=== PATIENT | female | born 1995 | race Caucasian/White ===

== ENCOUNTER 2016-03-05 19:50 | Emergency (ER) | payer OTHER ==
[2016-03-05 19:56] VITALS: BP 121/69; PULSE 97; TEMP 98.3; BMI 32.4
[2016-03-05] MEDS ORDERED: SODIUM CHLORIDE 1,000 ML IV STA (19:57)
--- NOTE | 2016-03-05 20:13 | PDOC ---
*Physical Exam - Vital Signs Last Vital Signs Temp Pulse Resp BP Pulse Ox 98.3 F 97 H 18 121/69 100 03/05/16 19:54 03/05/16 19:54 03/05/16 19:54 03/05/16 19:54 03/05/16 19:54 ED Treatment Course - LABORATORY CBC & Chemistry Diagram: 03/05/16 20:18 03/05/16 21:05 Medical Decision Making - Medical Decision Making 03/05/16 20:13 agree with care from MAITE Young *DC/Admit/Observation/Transfer Diagnosis at time of Disposition: Hyperemesis arising during - Discharge Dispostion Disposition: HOME Condition at time of disposition: Improved - Prescriptions Prescriptions: Metoclopramide HCl [Reglan] 10 mg PO QID #30 tablet - Referrals Referrals: Errol Gomez MD [Staff Physician] - Rosanna Traylor [Primary Care Provider] - - Patient Instructions Additional Instructions: Rest Pelvic rest Increase fluids We have spoke in length regarding your ultrasound report from this evening in the emergency department. We have spoke about the heart rate of 198 bpm which is extremely high. You've advised me that you will see your supply room clerk tomorrow for follow-up. I want to reiterate how important it is for you to do so tomorrow. Be sure to continue drinking fluids and eating 3 full meals with snacks in between. Pelvic rest. Return back to the emergency department for severe/persistent or worsening symptoms.
[2016-03-05] MEDS ORDERED: METOCLOPRAMIDE HCL INJECTION 10 MG/2 ML VIAL ONE (20:25)
[2016-03-05] MEDS ORDERED: METOCLOPRAMIDE HCL INJECTION 10 MG/2 ML VIAL IVPB ONE (20:26)
[2016-03-05 20:29] LABS: MCH 28.9 pg (25.7-33.7); MCHC 32.4 g/dl (32.0-36.0); MEAN CELL VOLUME 89.3 fl (80-96); MEAN PLT VOLUME 9.3 fl (7.5-11.1); PLATELET COUNT 303 K/MM3 (134-434); RDW 14.3 % (11.6-15.6); WHITE BLOOD COUNT 12.3 K/mm3 (4.0-10.0)
--- NOTE | 2016-03-05 20:52 | PDOC ---
History of Present Illness - General Chief Complaint: Vomiting/Diarrhea Stated Complaint: 10WKS/VOMITING/DIARRHEA Time Seen by Provider: 03/05/16 20:12 History Source: Patient Exam Limitations: No Limitations - History of Present Illness Travel History: No Timing/Duration: reports: intermittent Quality: reports: mild Pain Radiation: reports: no radiation Past History - Travel Traveled outside of the country in the last 30 days: No Close contact w/someone who was outside of country & ill: No - Past Medical History Allergies/Adverse Reactions: Allergies Allergy/AdvReac Type Severity Reaction Status Date / Time peanut Allergy Severe shock Verified 03/05/16 19:54 Home Medications: Ambulatory Orders Pnv95/Ferrous Fumarate/FA [ Caplet] 1 each PO DAILY 03/05/16 Asthma: Yes Cancer: No Cardiac Disorders: No Diabetes: No HTN: No Seizures: No Thyroid Disease: No - Immunization History Immunization Up to Date: Yes - Psycho/Social/Smoking Cessation Hx Anxiety: No Suicidal Ideation: No Smoking Status: No Smoking History: Never smoked Number of Cigarettes Smoked Daily: 0 Hx Alcohol Use: No Drug/Substance Use Hx: No Substance Use Type: None Hx Substance Use Treatment: No Abd/GI Specific PMHX - Complaint Specific PMHX Diverticulitis: No Gall Bladder Disease: No GERD: No Review of Systems - Review of Systems Able to Perform ROS?: Yes Comments:: 03/05/16 20:52 CONSTITUTIONAL: Absent: fever, chills, diaphoresis, generalized weakness, malaise, loss of appetite HEENT: Absent: rhinorrhea, nasal congestion, throat pain, throat swelling, difficulty swallowing, mouth swelling, ear pain, eye pain, visual Changes CARDIOVASCULAR: Absent: chest pain, loss of consciousness, palpitations, irregular heart rate, peripheral edema RESPIRATORY: Absent: cough, shortness of breath, dyspnea with exertion, orthopnea, wheezing, stridor, hemoptysis GASTROINTESTINAL: +n/v/d Absent: abdominal pain, abdominal distension, constipation, melena, hematochezia GENITOURINARY: Absent: dysuria, frequency, urgency, hesitancy, hematuria, flank pain, genital pain MUSCULOSKELETAL: Absent: myalgia, arthralgia, joint swelling SKIN: Absent: rash, itching, pallor HEMATOLOGIC/IMMUNOLOGIC: Absent: easy bleeding, easy bruising, lymphadenopathy, frequent infections ENDOCRINE: Absent: unexplained weight gain, unexplained weight loss, heat intolerance, cold intolerance NEUROLOGIC: Absent: headache, focal weakness or paresthesias, dizziness, unsteady gait, seizure, mental status changes, bladder or bowel incontinence PSYCHIATRIC: Absent: anxiety, depression, suicidal or homicidal ideation, hallucinations. 03/05/16 20:53 Is the patient limited Surinamese proficient: No *Physical Exam - Vital Signs Last Vital Signs Temp Pulse Resp BP Pulse Ox 98.3 F 97 H 18 121/69 100 03/05/16 19:54 03/05/16 19:54 03/05/16 19:54 03/05/16 19:54 03/05/16 19:54 - Physical Exam Comments: 03/05/16 20:54 GENERAL: Well developed, well nourished. Awake and alert. No acute distress. HEENT: Normocephalic, atraumatic. PERRLA, EOMI. No conjunctival pallor. Sclera are non- icteric. Moist mucous membranes. Oropharynx is clear. NECK: Supple. Full ROM. No JVD. Carotid pulses 2+ and symmetric, without bruits. No thyromegaly. No lymphadenopathy. CARDIOVASCULAR: Regular rate and rhythm. No murmurs, rubs, or gallops. Distal pulses are 2+ and symmetric. PULMONARY: No evidence of respiratory distress. Lungs clear to auscultation bilaterally. No wheezing, rales or rhonchi. ABDOMINAL: Soft. Non-tender. Non-distended. No rebound or guarding. No organomegaly. Normoactive bowel sounds. MUSCULOSKELETAL Normal range of motion at all joints. No bony deformities or tenderness. No CVA tenderness. EXTREMITIES: No cyanosis. No clubbing. No edema. No calf tenderness. SKIN: Warm and dry. Normal capillary refill. No rashes. No jaundice. NEUROLOGICAL: Alert, awake, appropriate. Cranial nerves 2-12 intact. No deficits to light touch and temperature in face, upper extremities and lower extremities. No motor deficits in the in face, upper extremities and lower extremities. Normoreflexic in the upper and lower extremities. Normal speech. Toes are down- going bilaterally. Gait is normal without ataxia. PSYCHIATRIC: Cooperative. Good eye contact. Appropriate mood and affect. ED Treatment Course - LABORATORY CBC & Chemistry Diagram: 03/05/16 20:18 03/05/16 21:05 - ADDITIONAL ORDERS Additional order review: Laboratory Results 03/05/16 20:18 Sodium Cancelled Potassium Cancelled Chloride Cancelled Carbon Dioxide Cancelled Anion Gap Cancelled BUN Cancelled Creatinine Cancelled Creat Clearance w eGFR Cancelled Random Glucose Cancelled Calcium Cancelled Total Bilirubin Cancelled AST Cancelled ALT Cancelled Alkaline Phosphatase Cancelled Total Protein Cancelled Albumin Cancelled Beta HCG, Quant Cancelled 03/05/16 20:18 RBC 4.75 MCV 89.3 MCHC 32.4 RDW 14.3 MPV 9.3 Neutrophils % Y Lymphocytes % Y - Medications Given in the ED: ED Medications Discontinued Medications Generic Name Dose Route Start Last Admin Trade Name Adama PRN Reason Stop Dose Admin Metoclopramide HCl 10 mg 03/05/16 20:26 03/05/16 20:28 Reglan Injection - IVPB 03/05/16 20:27 10 mg ONCE ONE Administration Progress Note - Progress Note Progress Note: 21-year-old female presents to the emergency department complaining of nausea/ vomiting(nonbilious, nonbloody)/diarrhea 2 days without abdominal pains, urinary symptoms: Frequency/urgency/hesitancy/hematuria, flank pain, chest pain , shortness of breath, headache. Patient states she's been trying to eat and drink all day but becomes immediately nauseous. LMP 12/26/2015 2325hrs; Pt tolerating fluids well. She says she feels better. *DC/Admit/Observation/Transfer Diagnosis at time of Disposition: Hyperemesis arising during - Discharge Dispostion Disposition: HOME Condition at time of disposition: Improved - Referrals Referrals: Rosanna Traylor [Primary Care Provider] - Errol Gomez MD [Staff Physician] - - Patient Instructions Additional Instructions: Rest Pelvic rest Increase fluids We have spoke in length regarding your ultrasound report from this evening in the emergency department. We have spoke about the heart rate of 198 bpm which is extremely high. You've advised me that you will see your development professional tomorrow for follow-up. I want to reiterate how important it is for you to do so tomorrow. Be sure to continue drinking fluids and eating 3 full meals with snacks in between. Pelvic rest. Return back to the emergency department for severe/persistent or worsening symptoms.
[2016-03-05 21:43] LABS: ALBUMIN 3.6 g/dl (3.4-5.0); ALK PHOS 35 U/L (45-117); ANION GAP 12 (8-16); BILIRUBIN,TOTAL 0.4 mg/dL (0.2-1.0); CALCIUM 8.3 mg/dL (8.5-10.1); CO2 20 mmol/L (21-32); CREATININE 0.6 mg/dL (0.55-1.02); GLUCOSE,RANDOM 72 mg/dL (74-106); SGOT/AST 14 U/L (15-37); SGPT/ALT 20 U/L (12-78)
[2016-03-05 21:53] LABS: PLATELET ESTIMATE ADEQUATE (NORMAL)
[2016-03-05 22:44] LABS: PH,URINE 5.5 (5.0-8.0); URINE APPEARANCE CLEAR; URINE BILIRUBIN NEGATIVE (NEGATIVE); URINE BLOOD NEGATIVE (NEGATIVE); URINE COLOR LT. YELLOW; URINE GLUCOSE (UA) NEGATIVE (NEGATIVE); URINE KETONE 3+ (NEGATIVE); URINE LEUK ESTERASE NEGATIVE (NEGATIVE); URINE NITRITE NEGATIVE (NEGATIVE); URINE PROTEIN NEGATIVE (NEGATIVE); URINE UROBILINOGEN 0.2 E.U/dl E.U./dl (0.2-1.0)
== END 2016-03-05 23:37 | disposition home or self-care (01) ==
LOC: JER 19:50
PROC: 3E0337Z Introduction of Electrolytic and Water Balance Substance into Peripheral Vein, Percutaneous Approach (ICD-10-PCS; principal; 2016-03-05)
PROC: 3E033GC Introduction of Other Therapeutic Substance into Peripheral Vein, Percutaneous Approach (ICD-10-PCS; 2016-03-05)
DX: O21.0 Mild hyperemesis gravidarum (principal); Z3A.10 10 weeks gestation of pregnancy
CPT/HCPCS: 36415; 76801-TC; 80053; 81003; 84702; 85025; 96361; 96374; 99281-25

== ENCOUNTER 2016-09-22 23:15 | Inpatient (IN) | payer OTHER ==
[~2016-09-22 23:15] MED LIST: AMPICILLIN 2 GM/100 ML BAG (PRE-DOCKED) IVPB ONE; DEXTROSE 5%-LACTATED RINGERS 1,000 ML IV SCH
[2016-09-23 00:19] LABS: BASOPHIL 0.2 % (0-2.0); EOSINOPHIL 0.1 % (0-4.5); MCH 29.8 pg (25.7-33.7); MCHC 33.4 g/dl (32.0-36.0); MEAN PLT VOLUME 9.4 fl (7.5-11.1); NEUTROPHILS 84.4 % (42.8-82.8); PLATELET COUNT 264 K/MM3 (134-434); RDW 12.9 % (11.6-15.6); WHITE BLOOD COUNT 13.4 K/mm3 (4.0-10.0)
[2016-09-23 00:36] LABS: ACTIVATED PTT 25.3 SECONDS (26.9-34.4)
[2016-09-23 00:40] LABS: INR 0.99 (0.82-1.09); PROTHROMBIN TIME (PATIENT) 10.9 SEC (9.98-11.88)
[2016-09-23 00:45] LABS: ALK PHOS 129 U/L (45-117); ANION GAP 12 (8-16); BILIRUBIN,TOTAL 0.3 mg/dL (0.2-1.0); CALCIUM 8.7 mg/dL (8.5-10.1); CO2 23 mmol/L (21-32); CREATININE 0.5 mg/dL (0.55-1.02); GLUCOSE,RANDOM 86 mg/dL (74-106); SGOT/AST 21 U/L (15-37); SGPT/ALT 34 U/L (12-78); TOT PROT 6.9 g/dl (6.4-8.2)
[2016-09-23] MEDS: D5W-LR W/ 20 UNITS OXYTOCIN 1,000 ML IV SCH (00:50)
[2016-09-23] MEDS ORDERED: BENZOCAINE 20% 57 GM BOTTLE TP PRN (01:03)
[2016-09-23] MEDS ORDERED: BISACODYL 10 MG SUPP.RECT RC PRN (01:03)
[2016-09-23] MEDS ORDERED: METHYLERGONOVINE MALEATE 0.2 MG/1 ML AMP IM PRN (01:03)
[2016-09-23] MEDS ORDERED: WITCH HAZEL 50% (TUCKS) 40 PAD/JAR PAD TP PRN (01:03)
[2016-09-23] MEDS ORDERED: BENZOCAINE 28 GM HEMORRHOIDAL OINTMENT TP PRN (01:03)
--- NOTE | 2016-09-23 01:12 | HP ---
Past Medical History - Primary Care Physician PCP:: Antony Fallon - Admission Chief Complaint: 21yo P1 with at EGA [id number] admitted in second stage of labor. History of Present Illness: Pt reports no complications during care. care at [facility]. No [facility] records are available. 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: No: Alzheimer's, CVA, Dementia, Migraine, Multiple Sclerosis, Peripheral Neuropathy, Parkinson's, Seizure, Syncope, TIA, Vertigo, Other Cardiovascular: No: AFIB, Aneurysm, Aortic Insufficiency, Aortic Stenosis, CAD, CHF, Deep Vein Thrombosis, HTN, Hyperlipdemia, DE, Mitral Insufficiency, Mitral Stenosis, Murmur, Pulmonary Hypertension, Other Pulmonary: Yes: Asthma Gastrointestinal: No: Ascites, Cancer, Constipation, Crohn's Disease, Diverticulitis, Diverticulosis, Esophageal Varices, Gastritis, GERD, GI Bleed, Hemorrhoids, Hiatal Hernia, Inflamatory Bowel Disease, Irritable Bowel Disease, Pancreatitis, Peptic Ulcer Disease, Ulcerative Colitis, Other Hepatobiliary: No: Cirrhosis, Cholelithiasis, Cholecystitis, Choledocholithiasis , Hepatitis A, Hepatitis B, Hepatitis C, Other Renal/: No: Renal Failure, Renal Inusuff, BPH, Cancer, Hematuria, Hemodialysis , Neurogenic Bladder, Renal Calculi, UTI, Other Reproductive: No: Ectopic , Endometriosis, Fibroids, PID, Polycystic Ovary Syndrome, Postmenopausal, Other ...: 2 ...Para: 1 ( at term) ...Term: 1 ... Weeks Gestation by Dates: 39 ...EDC by Dates: 10/01/16 Heme/Onc: No: Anemia, B12 Deficiency, Bleeding Disorder, Cancer, Current Chemotherapy, Current Radiation Therapy, Hemochromatosis, Hypercoaguable State, Myeloproliferative Synd, Sickle Cell Disease, Sickle Cell Trait, Thrombocytopenia, Other Infectious Disease: No: AIDS, C-Diff, Herpes Zoster, HIV, MRSA, STD's, Tuberculosis, VREF, Other Psych: No: Addictions, Anxiety, Bipolar, Depression, Panic, Psychosis, Schizophrenia, Other Musculoskeletal: No: Bursitis, Chronic low back pain, Hemiparesis, Hemiplegia, Osteoarthritis, Paraplegia, Other Rheumatology: No: Fibromyalgia, Gout, Lupus, Rheumatoid Arthritis, Sarcoidosis, Vasculitis, Other ENT: No: Allergic Rhinitis, Sinusitis, Other Endocrine: No: Singh's Disease, Patricia's Disease, Diabetes Insipidus, Diabetes Mellitus, Hyperparathyroidism, Hyperthyroidism, Hypothyroidism, Osteopenia, SIADH, Other Dermatology: No: Basal Cell, Cellulitis, Eczema, Melanoma, Psoriasis, Squamous Cell, Other - Past Surgical History Past Surgical History: Yes: None Hx Myomectomy: No Hx Transabdominal Cerclage: No - Smoking History Smoking history: Never smoked Have you smoked in the past 12 months: No Aproximately how many cigarettes per day: 0 - Alcohol/Substance Use Hx Alcohol Use: No History of Substance Use: reports: None - Social History Usual Living Arrangement: Yes: With Spouse, With Child ADL: Independent History of Recent Travel: No Home Medications - Allergies Allergies/Adverse Reactions: Allergies Allergy/AdvReac Type Severity Reaction Status Date / Time peanut Allergy Severe shock Verified 03/05/16 19:54 - Home Medications Home Medications: Ambulatory Orders Metoclopramide HCl [Reglan] 10 mg PO QID #30 tablet 03/05/16 Pnv95/Iron Fum/Folic Acid [ Caplet] 1 each PO DAILY 03/05/16 Family Disease History - Family Disease History Family History: Denies Review of Systems - Review of Systems Constitutional: reports: Other Eyes: reports: No Symptoms HENT: reports: No Symptoms Neck: reports: No Symptoms Cardiovascular: reports: No Symptoms Respiratory: reports: No Symptoms Gastrointestinal: reports: No Symptoms Genitourinary: reports: No Symptoms Breasts: reports: No Symptoms Reported Musculoskeletal: reports: No Symptoms Integumentary: reports: No Symptoms Neurological: reports: No Symptoms Endocrine: reports: No Symptoms Hematology/Lymphatic: reports: No Symptoms Psychiatric: reports: No Symptoms Pain Intensity: 10 Physical Exam - Maternity Constitutional: Yes: Well Nourished, Calm, Other (in labor) Eyes: Yes: WNL, Conjunctiva Clear HENT: Yes: WNL, Atraumatic, Normocephalic Neck: Yes: WNL, Supple Cardiovascular: Yes: WNL, Regular Rate and Rhythm Lungs: Clear to auscultation, Normal air movement - Abdominal Exam/OB Fundal Height: 38 Number of Fetuses: Single Presentation: Vertex Contractions: Yes Regularity: Regular Intensity: Strong Monitor Mode: External Heart Rate (range): 135 Heart Rate Location: Midline Category: I Accelerations: None Decelerations: Variable - Vaginal Exam/OB Vaginal Bleediing: No Speculum Exam: No Dilatation (cm): 10 Effacement (%): 100 Amniotic Membrane Status: Leaking (SROM on presentation) Amniotic Fluid: Yes: Clear Presentation: Vertex/Position Station: +2 - Labs Lab Results: CBC, BMP 09/23/16 00:01 09/23/16 00:01 Hemorrhage Risk Assessment - Risk Factors Medium Risk Factors: Yes: None High Risk Factors: Yes: None Risk Score: 1 Risk Level: Medium Risk Assessment/Plan 21yo P1 came to L&D in second stage of labor. I was called to assess the patient and assist in delivery. The pt proceeded to have a normal vaginal delivery quickly and w/o complications. The mother and baby are well.
[2016-09-23] MEDS: ACETAMINOPHEN 325 MG TABLET (FP) PO PRN ×4 (01:15→19:43)
[2016-09-23] MEDS: IBUPROFEN 600 MG TABLET (FP) PO PRN ×3 (01:15→19:43)
[2016-09-23 01:25] LABS: ARTERIAL BLOOD GAS BASE EXCESS -1.9 meq/l (-2-2); ARTERIAL BLOOD GAS HCO3 20.2 meq/L (22-26); ARTERIAL BLOOD GAS pH 7.46 (7.35-7.45)
[2016-09-23 01:27] LABS: ARTERIAL BLD GAS O2 SATURATION 74.4 % (90-98.9); ARTERIAL BLOOD GAS PO2 33.1 mmHg (80-100)
[2016-09-23 01:30] LABS: ARTERIAL BLOOD GAS BASE EXCESS -3.6 meq/l (-2-2); ARTERIAL BLOOD GAS HCO3 22.1 meq/L (22-26); ARTERIAL BLOOD GAS pH 7.32 (7.35-7.45)
[2016-09-23 01:31] LABS: ARTERIAL BLD GAS O2 SATURATION 54.5 % (90-98.9); ARTERIAL BLOOD GAS PO2 26.1 mmHg (80-100)
[2016-09-23 02:22] VITALS: BMI 35.3
[2016-09-23 02:25] LABS: HIV 1 & 2 AB NEGATIVE; HIV 1 AGp24 NEGATIVE
[2016-09-23] MEDS ORDERED: AMPICILLIN (PRE-DOCKED) 1 GM/100 ML BAG IVPB SCH (03:15)
[2016-09-23] MEDS: PRENATAL VITAMINS W/ FOLIC ACID TABLET (FP) PO SCH (09:41)
--- NOTE | 2016-09-23 11:24 | PN ---
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
[2016-09-24 09:26] LABS: BASOPHIL 0.7 % (0-2.0); EOSINOPHIL 3.6 % (0-4.5); MCH 30.6 pg (25.7-33.7); MCHC 33.9 g/dl (32.0-36.0); MEAN CELL VOLUME 90.3 fl (80-96); MEAN PLT VOLUME 9.4 fl (7.5-11.1); NEUTROPHILS 61.5 % (42.8-82.8); PLATELET COUNT 246 K/MM3 (134-434); RDW 13.2 % (11.6-15.6); WHITE BLOOD COUNT 8.8 K/mm3 (4.0-10.0)
[2016-09-24] MEDS: PRENATAL VITAMINS W/ FOLIC ACID TABLET (FP) PO SCH (09:32)
[2016-09-24] MEDS: ACETAMINOPHEN 325 MG TABLET (FP) PO PRN (10:09)
[2016-09-24] MEDS: IBUPROFEN 600 MG TABLET (FP) PO PRN (10:10)
--- NOTE | 2016-09-24 11:44 | PN ---
Post Progress Note - Subjective Subjective: No complaints Post Day: 1 Type of Delivery: Vital Signs: Vital Signs Temperature 98.3 F 09/24/16 08:18 Pulse Rate 86 09/24/16 08:18 Respiratory Rate 20 09/24/16 08:18 Blood Pressure 119/74 09/24/16 08:18 O2 Sat by Pulse Oximetry (%) 100 09/23/16 03:00 Breast Exam: Yes: Soft Uterus: Yes: Fundus Firm, Fundus below umbilicus, Non-tender Abdomen/GI: Yes: Abdomen soft, Passing flatus, Tolerating PO Lochia: Yes: Rubra Lochia, amount: Small Extremities: Yes: Calves non-tender Perineum: Yes: Intact Activity: Ambulating - Labs Labs: CBC WBC 8.8 K/mm3 (4.0-10.0) D 09/24/16 08:30 RBC 4.05 M/mm3 (3.60-5.2) 09/24/16 08:30 Hgb 12.4 GM/dL (10.7-15.3) 09/24/16 08:30 Hct 36.6 % (32.4-45.2) 09/24/16 08:30 MCV 90.3 fl (80-96) 09/24/16 08:30 MCH 30.6 pg (25.7-33.7) 09/24/16 08:30 MCHC 33.9 g/dl (32.0-36.0) 09/24/16 08:30 RDW 13.2 % (11.6-15.6) 09/24/16 08:30 Plt Count 246 K/MM3 (134-434) 09/24/16 08:30 MPV 9.4 fl (7.5-11.1) 09/24/16 08:30 Neutrophils % 61.5 % (42.8-82.8) D 09/24/16 08:30 Lymphocytes % 25.3 % (8-40) D 09/24/16 08:30 Monocytes % 8.9 % (3.8-10.2) 09/24/16 08:30 Eosinophils % 3.6 % (0-4.5) D 09/24/16 08:30 Basophils % 0.7 % (0-2.0) D 09/24/16 08:30 Assessment/Plan 21yo P2 s/p , doing well stable, afebrile. care instructions reviewed. Continue routine care. Ambulation encouraged Discharge instruction reviewed.
[2016-09-24] MEDS: D5W-LR W/ 20 UNITS OXYTOCIN 1,000 ML IV SCH (13:00)
[2016-09-24] MEDS ORDERED: SENNOSIDES/DOCUSATE COMBO (SENNA PLUS) TABLET (UD) PO PRN (22:00)
[2016-09-25] MEDS: IBUPROFEN 600 MG TABLET (FP) PO PRN (08:02)
[2016-09-25] MEDS: ACETAMINOPHEN 325 MG TABLET (FP) PO PRN (08:03)
[2016-09-25] MEDS: PRENATAL VITAMINS W/ FOLIC ACID TABLET (FP) PO SCH (09:13)
[2016-09-25 11:15] VITALS: BP 119/76; PULSE 72; TEMP 98.1
--- NOTE | 2016-09-25 11:50 | DS ---
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 Vital Signs: Vital Signs Temperature 98.1 F 09/25/16 10:00 Pulse Rate 72 09/25/16 10:00 Respiratory Rate 20 09/25/16 10:00 Blood Pressure 119/76 09/25/16 10:00 O2 Sat by Pulse Oximetry (%) 100 09/23/16 03:00 Constitutional: Yes: Well Nourished Eyes: Yes: WNL HENT: Yes: WNL Neck: Yes: WNL Cardiovascular: Yes: WNL Respiratory: Yes: WNL Gastrointestinal: Yes: WNL, Normal Bowel Sounds, Soft Pelvis: Yes: WNL External Genitalia: Yes: Normal Vaginal Exam: Yes: Normal ....Post : Yes: Uterus firm, Uterus non-tender Breast(s): Yes: WNL Musculoskeletal: Yes: WNL Extremities: Yes: WNL Edema: No Integumentary: Yes: WNL Neurological: Yes: WNL ...Motor Strength: WNL Psychiatric: Yes: WNL Labs: CBC, BMP 09/24/16 08:30 09/23/16 00:01 Delivery - Delivery Vaginal Delivery: No Problems, Spontaneous Type of Anesthesia: None Episiotomy/Laceration: None EBL (cc): 200 Delivery, Single - Stages of Labor Date 1st Stage Initiatied: 09/22/16 Time 1st Stage Initiated: 16:00 Date 2nd Stage Initiated: 09/23/16 Time 2nd Stage Initiated: 00:30 Date of Delivery: 09/23/16 Time of Delivery: 00:44 Time Placenta Delivered: 00:50 Placenta: Yes: Spontaneous, Normal Configuration - 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 You may walk unlimited ravindra of and climb stairs. You may resume driving the car when you feel safe and comfortable behind the wheel. No sexual activity as instructed. Wound care If you have a bandage, leave it on, and keep dry for 48-72 hours. After that time discard the outer bandage. If they are tapes on the skin under the out of bandage leave them in place. They will peel off in the next 7 to 10 days. Do Not Peel them off. You may shower the day after surgery. If there are tapes present on the skin, you may shower over them. Diet There are no dietary restrictions. Eat healthy, high-fiber foods. Drink 6 to 8 glasses of liquid each day. This will assist in keeping your bowels are regular. Pain management You may take Tylenol or acetaminophen or Ibuprofen (for example, Motrin, Advil etc.) from my pain prescription medication is ordered should be taken as prescribed for moderate to severe pain. Call MD for any of the following: Severe pain not relieved by medication Fever of 101 or higher Excessive bleeding or drainage on dressing Inability to urinate Referrals: Antony Fallno MD [Staff Physician] - Disposition: HOME - Home Medications Comprehensive Discharge Medication List: Ambulatory Orders Vitamins (Sjr) - 1 tab PO DAILY 09/23/16
--- NOTE | 2016-09-26 14:43 | PATH ---
Surgical Pathology Report Patient Name: SILVESTRE MARTIN Med. Rec. 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 Specimen(s) Received PLACENTA Clinical History , 38.6 weeks Final Diagnosis PLACENTA, DELIVERY: INTACT, SMALL (<400 GM), THIRD TRIMESTER PLACENTA WITH MODERATE PREVILLOUS, PERIVILLOUS, AND PRECHORIONIC FIBRIN DEPOSITION, THREE VESSEL UMBILICAL CORD, AND PLACENTAL MEMBRANES WITH FOCAL AMNION HYPERPLASIA AND ACUTE CHORIOAMNIONITIS. Electronically Signed Ger Rich M.D. Gross Description The specimen is received fresh, labeled "placenta" and is a 248 gram, 12.5 x 11.5 x 2.6 cm placenta with attached membranes and umbilical cord. The attached membranes are fr[place], translucent with focal opacities and insert marginally. The umbilical cord measures 17 cm in length and averages 1.0 cm in diameter. The cord inserts eccentrically, 2 cm to the nearest margin. No true knots or strictures are identified. Cut surface of the umbilical cord reveals 3 vessels. The surface is curran-blue with fibrin deposition and appropriate caliber vessels. The maternal surface is red-brown and intact. Sectioning reveals red-brown, spongy parenchyma. No focal lesions are identified. Automatic Vulcanizing Lead Operator sections are submitted in three cassettes as follows: 1- membrane rolls and umbilical cord; 2-3- full thickness sections of placenta. 09/25/2016 [facility]09/25/2016
== END 2016-09-25 12:21 | disposition home or self-care (01) | DRG 560 ==
LOC: JLDR 23:15 → J3W 09-23 03:45
PROVIDERS: ADMIT Obstetrics & Gynecology; ATTEND Obstetrics & Gynecology
PROC: 10E0XZZ Delivery of Products of Conception, External Approach (ICD-10-PCS; principal; 2016-09-23)
DX: O99.824 Streptococcus B carrier state complicating childbirth (principal); Z3A.39 39 weeks gestation of pregnancy; Z37.0 Single live birth
CPT/HCPCS: 36415; 36600; 59409; 80053; 82803; 85025; 85610; 85730; 86593; 86762; 86850; 86900; 86901; 87340; 87389; 88307-TC

== ENCOUNTER 2020-11-06 22:34 | Emergency (ER) | payer OTHER ==
[2020-11-06 23:00] VITALS: TEMP 98.4; BMI 25.1
[2020-11-06] MEDS ORDERED: ACETAMINOPHEN 1000 MG/100 ML VIAL (NON FORMULARY) IVPB ONE (23:54)
[2020-11-06] MEDS ORDERED: SODIUM CHLORIDE 0.9% 500 ML INFUS.BAG IV ONE (23:54)
[2020-11-06] MEDS ORDERED: FAMOTIDINE 20 MG/50 ML IVPB 20 MG/50 ML MG IVPB ONE (23:56)
[2020-11-06] MEDS ORDERED: MAG HYDROX/AL HYDROX/SIMETH 30 ML UNIT-DOSE CUP PO ONE (23:56)
[2020-11-07] MEDS ORDERED: FAMOTIDINE 20 MG/50 ML IVPB 20 MG/50 ML MG IVPB ONE (00:37)
[2020-11-07] MEDS ORDERED: MAG HYDROX/AL HYDROX/SIMETH 30 ML UNIT-DOSE CUP ONE (00:37)
[2020-11-07 00:49] LABS: BASO % 0.6 % (0-2.0); EOS % 0.2 % (0-4.5); HEMATOCRIT 40.8 % (32.4-45.2); HEMOGLOBIN 14.2 GM/dL (10.7-15.3); MCH 32.2 pg (25.7-33.7); MCHC 34.8 g/dl (32.0-36.0); MEAN CELL VOLUME 92.4 fl (80-96); MEAN PLT VOLUME 9.4 fl (7.5-11.1); MONO % 5.8 % (3.8-10.2); NEUT % 83.4 % (42.8-82.8); PLATELET COUNT 192 10^3/uL (134-434); RBC 4.42 M/mm3 (3.60-5.2); RDW 12.9 % (11.6-15.6); WHITE BLOOD COUNT 9.2 K/mm3 (4.0-10.0)
[2020-11-07] MEDS ORDERED: ACETAMINOPHEN INJECTION 100 ML IVPB ONE (00:49)
[2020-11-07 01:21] LABS: ALBUMIN 4.5 g/dl (3.4-5.0); ALK PHOS 34 U/L (45-117); ANION GAP 9 MMOL/L (8-16); BILIRUBIN,TOTAL 0.4 mg/dL (0.2-1); CHLORIDE 107 mmol/L (98-107); CO2 24 mmol/L (21-32); CREATININE 0.8 mg/dL (0.55-1.3); GLUCOSE,RANDOM 113 mg/dL (74-106); PHOSPHOROUS 3.4 mg/dL (2.5-4.9); SGOT/AST 15 U/L (15-37); SGPT/ALT 41 U/L (13-61); SODIUM 139 mmol/L (136-145); TOT PROT 8.6 g/dl (6.4-8.2)
[2020-11-07] MEDS ORDERED: METOPROLOL TARTRATE 25 MG TABLET (FP) PO ONE (01:41)
[2020-11-07] MEDS ORDERED: LORazepam 2 MG TABLET PO ONE (01:42)
[2020-11-07] MEDS ORDERED: METOPROLOL TARTRATE 25 MG TABLET (FP) ONE (01:53)
[2020-11-07] MEDS ORDERED: LORazepam 1 MG TABLET ONE (01:54)
[2020-11-07 03:31] VITALS: BP 98/62; PULSE 84
== END 2020-11-07 03:31 | disposition home or self-care (01) ==
LOC: JER 22:34
PROC: 3E033GC Introduction of Other Therapeutic Substance into Peripheral Vein, Percutaneous Approach (ICD-10-PCS; principal; 2020-11-06)
DX: R00.2 Palpitations (principal); R07.89 Other chest pain
CPT/HCPCS: 36415; 71046-TC-FY; 80053; 83735; 84100; 84443; 84484; 84703; 85025; 93005; 93010; 99285-25; J0131

== ENCOUNTER 2020-12-18 17:04 | Emergency (ER) | payer OTHER ==
[2020-12-18 17:13] VITALS: BP 109/75; PULSE 78; TEMP 98; BMI 23.6
[2020-12-18] MEDS ORDERED: SODIUM CHLORIDE 0.9% 500 ML INFUS.BAG IV ONE (19:02)
[2020-12-18] MEDS ORDERED: ONDANSETRON 4 MG/2 ML VIAL IVPUSH ONE (19:25)
[2020-12-18] MEDS ORDERED: ONDANSETRON 4 MG/2 ML VIAL ONE (19:37)
[2020-12-18 19:48] LABS: BASO % 0.7 % (0-2.0); EOS % 0.7 % (0-4.5); HEMOGLOBIN 14.2 GM/dL (10.7-15.3); LYMPH % 19.2 % (8-40); MCH 32.2 pg (25.7-33.7); MCHC 34.6 g/dl (32.0-36.0); MEAN CELL VOLUME 93.3 fl (80-96); MEAN PLT VOLUME 10.5 fl (7.5-11.1); MONO % 11.3 % (3.8-10.2); NEUT % 68.1 % (42.8-82.8); PLATELET COUNT 262 10^3/uL (134-434); RDW 13.8 % (11.6-15.6); WHITE BLOOD COUNT 5.5 K/mm3 (4.0-10.0)
[2020-12-18 20:04] LABS: ALBUMIN 4.3 g/dl (3.4-5.0); CALCIUM 9.7 mg/dL (8.5-10.1)
[2020-12-18 20:05] LABS: BLOOD UREA NITROGEN 8.2 mg/dL (7-18)
[2020-12-18 20:08] LABS: CREATININE 0.6 mg/dL (0.55-1.3)
[2020-12-18 20:09] LABS: BILIRUBIN,TOTAL 0.6 mg/dL (0.2-1); TOT PROT 8.4 g/dl (6.4-8.2)
[2020-12-18] MEDS ORDERED: KETOROLAC TROMETHAMINE 30 MG/1 ML VIAL IVPUSH ONE (21:40)
[2020-12-18] MEDS ORDERED: KETOROLAC TROMETHAMINE 30 MG/1 ML VIAL ONE (22:06)
== END 2020-12-18 23:08 | disposition home or self-care (01) ==
LOC: JER 17:04
PROC: 3E033GC Introduction of Other Therapeutic Substance into Peripheral Vein, Percutaneous Approach (ICD-10-PCS; principal; 2020-12-18)
DX: R00.2 Palpitations (principal); R11.0 Nausea; R74.01 Elevation of levels of liver transaminase levels
CPT/HCPCS: 36415; 76705-TC; 80053; 84703; 85025; 93005; 93010; 99285-25

== ENCOUNTER → 2021-07-03 | Day surgery (SDC) | payer OTHER ==
[2021-06-29 12:13] VITALS: BMI 25.4
[~2021-07-03] MED LIST changes: -AMPICILLIN 2 GM/100 ML BAG (PRE-DOCKED) IVPB ONE; +BUPIVACAINE HCL/PF 0.5% (5 MG/ML) 30 ML VIAL IJ ONE; +BUPIVACAINE HCL/PF 0.5% (5MG/ML) 10 ML VIAL ONE; +DESFLURANE GAS 240 ML BOTTLE IH ONE; +DEXAMETHASONE SOD PHOSPHATE 4 MG/1 ML VIAL ONE; -DEXTROSE 5%-LACTATED RINGERS 1,000 ML IV SCH; +GLYCOPYRROLATE 0.2 MG/1 ML VIAL ONE; +KETOROLAC TROMETHAMINE 30 MG/1 ML VIAL ONE; +LACTATED RINGERS SOLUTION 1,000 ML IV SCH; +LIDOCAINE HCL/PF 2% SDV 5ML VIAL ONE; +MIDAZOLAM HCL 2 MG/2 ML SINGLE DOSE VIAL ONE; +NEOSTIGMINE METHYLSULFATE 0.5 MG/ML - 10 ML MDV ONE; +ONDANSETRON 4 MG/2 ML VIAL IVPUSH PRN; +PROPOFOL 20 ML ONE; +ROCURONIUM BROMIDE 50 MG/5 ML SYRINGE ONE; +SODIUM CHLORIDE 0.9% P/F 10 ML VIAL IJ ONE; +SUCCINYLCHOLINE CHLORIDE 200 MG/10 ML SYRINGE ONE; +ceFAZolin SODIUM 1 GM VIAL IVPB ONE; +ceFAZolin SODIUM 1 GM VIAL ONE; +oxyCODONE HCL 5 MG TABLET PO PRN
[2021-07-03 16:13] VITALS: BP 103/63; PULSE 86; TEMP 98.4
== END | disposition home or self-care (01) ==
LOC: JASU-SURG 04:32
PROVIDERS: ATTEND Obstetrics & Gynecology
PROC: 0UT74ZZ Resection of Bilateral Fallopian Tubes, Percutaneous Endoscopic Approach (ICD-10-PCS; principal; 2021-07-03 10:00)
DX: Z30.2 Encounter for sterilization (principal)
CPT/HCPCS: 81025; 88302-TC; 94760

== ENCOUNTER 2023-08-04 00:50 | Emergency (ER) | payer OTHER ==
[2023-08-04 00:53] VITALS: BMI 33.0
[2023-08-04] MEDS ORDERED: ANAPHYLAXIS KIT ONE (01:01)
[2023-08-04] MEDS ORDERED: ALBUTEROL SO4 2.5/IPRATROPIUM 0.5 INH SOL 3 ML VIAL.NEB. NEB ONE (01:08)
[2023-08-04] MEDS: ALBUTEROL SO4 2.5/IPRATROPIUM 0.5 INH SOL 3 ML VIAL.NEB. NEB ONE (01:15)
[2023-08-04] MEDS: FAMOTIDINE 20 MG/50 ML IVPB 20 MG/50 ML MG IVPB ONE (01:15)
[2023-08-04] MEDS: methylPREDNISolone NA SUCC 125 MG/2 ML VIAL IVPUSH ONE (01:15)
[2023-08-04] MEDS: EPINEPHrine 1:1,000 1,000 MCG/ML ML SQ ONE (01:15)
[2023-08-04] MEDS: EPINEPHrine 1:10,000 (P-F SYR) 1 MG/10 ML DISP.SYRIN IVPUSH ONE (01:16)
[2023-08-04 03:52] VITALS: BP 118/78; PULSE 80; RESP 17; TEMP 98.6
== END 2023-08-04 04:52 | disposition home or self-care (01) ==
LOC: JER 00:50
PROC: 3E033GC Introduction of Other Therapeutic Substance into Peripheral Vein, Percutaneous Approach (ICD-10-PCS; principal; 2023-08-04)
PROC: 3E033GC Introduction of Other Therapeutic Substance into Peripheral Vein, Percutaneous Approach (ICD-10-PCS; 2023-08-04)
PROC: 3E033GC Introduction of Other Therapeutic Substance into Peripheral Vein, Percutaneous Approach (ICD-10-PCS; 2023-08-04)
DX: L50.9 Urticaria, unspecified (principal); T78.1XXA Other adverse food reactions, not elsewhere classified, initial encounter
CPT/HCPCS: 99284-25